=== PATIENT | female | born 1980 | race Caucasian/White ===

== ENCOUNTER 2016-10-13 14:39 | Emergency (ER) | payer OTHER ==
[~2016-10-13 14:39] MED LIST: ALBUTEROL17 GM INH; ALPRAZOLAM; ALPRAZOLAM PO; AMOXICILLIN PO; AURALGAN OTIC S10 M1 AS; BACTRIM DS TABL1 TA1 PO; BENZONATATE PO; CIPRO PO; DOXYCYCLINE HY100 M2 PO; FLEXERIL PO; FLEXERIL10 MG PO; FLUCONAZOLE150 MG PO; HYDROCODON-ACE1 EAC7 PO; KEFLEX 500MG PO; LAMICTAL; LAMICTAL PO; LAMICTAL150 MG PO; LORTAB 7.5-5001 TAB PO; NEURONTIN; NEURONTIN PO; NEURONTIN800 MG PO; NIZORAL 2% CREA15 GM EXT; NORFLEX100 M1 PO; PENICILLIN; PYRIDIUM PO; ROBAXIN 750750 M1 PO; SEROQUEL50 MG PO; SUDAFED PO; TRIAMCINOLONE CREAM TOP; VOLTAREN50 MG PO; VOLTAREN75 MG PO; XANAX PO
[2016-10-13 15:28] LABS: URINE SOURCE CLEAN CATCH
[2016-10-13 15:30] LABS: URINE APPEARANCE CLEAR; URINE BILIRUBIN NEG (NEG); URINE BLOOD NEG (NEG); URINE COLOR YELLOW; URINE GLUCOSE NEG (NORM); URINE KETONE NEG (NEG); URINE LEUKOCYTE ESTERASE NEG (NEG); URINE NITRATE NEG (NEG); URINE PROTEIN NEG (NEG); URINE UROBILINOGEN 0.2 MG/DL (NORM)
[2016-10-13 15:32] LABS: MICRO INDICATED? NO
== END 2016-10-13 16:06 | disposition home or self-care (01) ==
LOC: SED 14:39
PROVIDERS: Emergency Medicine
DX: R10.9 Unspecified abdominal pain (principal); J32.9 Chronic sinusitis, unspecified; Z79.899 Other long term (current) drug therapy
CPT/HCPCS: 81003; 99284

== ENCOUNTER 2016-10-19 12:51 | Emergency (ER) | payer OTHER ==
[2016-10-19] MEDS ORDERED: ZPAK PO (12:54)
== END 2016-10-19 13:20 | disposition home or self-care (01) ==
LOC: SED 12:51
DX: S80.861A Insect bite (nonvenomous), right lower leg, initial encounter (principal); S80.862A Insect bite (nonvenomous), left lower leg, initial encounter; S40.861A Insect bite (nonvenomous) of right upper arm, initial encounter; S40.862A Insect bite (nonvenomous) of left upper arm, initial encounter; R21 Rash and other nonspecific skin eruption; F31.9 Bipolar disorder, unspecified; F17.200 Nicotine dependence, unspecified, uncomplicated; Z88.1 Allergy status to other antibiotic agents; Z79.899 Other long term (current) drug therapy; W57.XXXA Bitten or stung by nonvenomous insect and other nonvenomous arthropods, initial encounter
CPT/HCPCS: 99282